=== PATIENT | female | born 1965 | race American Indian/Alaskan Native ===

== ENCOUNTER 2021-04-07 16:50 | Inpatient (IN) | payer MEDICAID ==
--- NOTE | 2021-04-08 18:29 | Consultation ---
History of Present Illness - Reason for Consult Consult date: 04/08/21 Medical management Requesting physician: REYNALDO DALEY - History of Present Illness 56 YO Female with DM, HTN, Bipolar Disorder, Schizophrenia admitted to [facility] for psychiatric stabilization. Consult placed by Dr. Daley for medical management. Patient seen and evaluated in the recreation room. No reported nursing events. Patient denies fever, chills, chest pain, palpitation, productive cough, skin rash, recent contact, or known exposure to COVID-19. Patient denies pain. Past History Past Medical History: diabetes, hypertension, other (See HPI) Past Surgical History: No surgical history, Other (Reviewed) Social history: single. denies: smoking, alcohol abuse Family history: diabetes, hypertension Medications and Allergies Allergies Allergy/AdvReac Type Severity Reaction Status Date / Time Sulfa (Sulfonamide Allergy Intermediate Hives Verified 04/08/21 19:36 Antibiotics) lorazepam [From Ativan] AdvReac Intermediate Unknown Verified 04/08/21 19:30 olanzapine [From Zyprexa] AdvReac Intermediate Unknown Verified 04/08/21 19:34 benztropine [From Cogentin] AdvReac Mild Unknown Verified 04/08/21 19:35 risperidone [From Risperdal] AdvReac Mild Unknown Verified 04/08/21 19:36 Review of Systems Constitutional: no weight loss, no weight gain, no fever, no chills Ears, nose, mouth and throat: no ear pain, no tinnitis, no decreased hearing, no nasal congestion, no nasal discharge Breasts: no change in shape, no swelling Cardiovascular: no chest pain, no rapid/irregular heart beat, no syncope, no lightheadedness Respiratory: no cough with sputum, no excessive sputum, no hemoptysis, no shortness of breath Gastrointestinal: no abdominal pain, no nausea, no constipation, no change in bowel habits Genitourinary Female: no pelvic pain, no flank pain, no dysuria, no urinary frequency, no urgency Rectal: no pain, no incontinence, no bleeding Musculoskeletal: no neck stiffness, no neck pain, no arm numbness/tingling Integumentary: no rash, no pruritis, no sores, no wounds Neurological: no head injury, no weakness, no numbness, no seizures Psychiatric: no anxiety Endocrine: no cold intolerance, no polyphagia, no excessive thirst, no polyuria Hematologic/Lymphatic: no easy bruising, no easy bleeding Allergic/Immunologic: no allergic rhinitis, no wheezing Exam - Constitutional General appearance: Present: no acute distress, well-nourished - EENT Eyes: Present: PERRL ENT: hearing intact, clear oral mucosa - Neck Neck: Present: supple, normal ROM - Respiratory Respiratory effort: normal Respiratory: bilateral: CTA - Cardiovascular Heart Sounds: Present: S1 & S2. Absent: rub, click - Extremities Extremities: pulses symmetrical, No edema Peripheral Pulses: within normal limits - Abdominal General gastrointestinal: Present: soft, non-tender, non-distended, normal bowel sounds Female genitourinary: Present: normal - Integumentary Integumentary: Present: clear, warm, dry - Musculoskeletal Musculoskeletal: gait normal, strength equal bilaterally - Psychiatric Psychiatric: appropriate mood/affect, intact judgment & insight - Neurologic Neurologic: CNII-XII intact, moves all extremities Results - Labs Labs: Abnormal lab results 04/08/21 Range/Units 15:39 POC Glucose 211 H (70-105) mg/dL Assessment and Plan - Patient Problems (1) Hypertension Current Visit: Yes Status: Acute Qualifiers: Hypertension type: primary hypertension Qualified Code(s): I10 - Essential (primary) hypertension Plan to address problem: Monitor blood pressure every shift, continue medical management (2) Diabetes Current Visit: Yes Status: Acute Plan to address problem: Consistent carbohydrate diet, Accu-Chek, insulin protocol, hypoglycemia protocol. (3) Bipolar 1 disorder Current Visit: Yes Status: Acute Plan to address problem: Continue medical management as per primary team.
[2021-04-08] MEDS ORDERED: DEXTROSE 50% IN WATER (25GM) 50 ML SYRINGE IV PRN (20:09)
[2021-04-08] MEDS: INSULIN LISPRO 100 UNIT/ML SUB-Q SCH (21:43)
[2021-04-09] MEDS: INSULIN LISPRO 100 UNIT/ML SUB-Q SCH ×4 (07:59→21:19)
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
[2021-04-09 09:25] LABS: Basophils # (Auto) 0.1 K/mm3 (0.0-0.1); Basophils % (Auto) 1.2 % (0.0-1.8); Eosinophils # (Auto) 0.1 K/mm3 (0.0-0.4); Eosinophils % (Auto) 1.3 % (0.0-4.3); Hemoglobin 12.3 gm/dl (10.1-14.3); Lymphocytes # (Auto) 2.6 K/mm3 (1.2-5.4); Lymphocytes % (Auto) 39.2 % (13.4-35.0); Mean Corpuscular HGB Conc 33 % (30-34); Mean Corpuscular Volume 78 fl (79-97); Monocytes # (Auto) 0.7 K/mm3 (0.0-0.8); Monocytes % (Auto) 11.1 % (0.0-7.3); Platelet Count 369 K/mm3 (140-440)
[2021-04-09 09:49] LABS: Alanine Aminotransferase 10 units/L (7-56); Albumin 3.1 g/dL (3.9-5); BUN/Creatinine Ratio 19; Blood Urea Nitrogen 17 mg/dL (7-17); Calcium 9.8 mg/dL (8.4-10.2); Chol/HDL Ratio 5.88 %; HDL Cholesterol 53 mg/dL (40-59); Hemolysis Index 6; LDL Cholesterol,Direct 213 mg/dL (50-130)
[2021-04-09] MEDS: ZIPRASIDONE MESYLATE 20 MG VIAL IM PRN (14:55)
[2021-04-09] MEDS ORDERED: NON-FORMULARY EACH (Gabapentin [Neurontin] 600 MG Tablet) PO SCH (18:00)
[2021-04-09] MEDS: BENZTROPINE 1 MG TAB PO SCH (18:16)
[2021-04-09] MEDS: metFORMIN 500 MG TAB PO SCH ×2 (18:16→18:18)
[2021-04-09] MEDS: NICOTINE 21 MG/24 HR PATCH TD SCH (18:16)
[2021-04-09] MEDS: GABAPENTIN 300 MG CAP PO SCH (18:17)
[2021-04-09] MEDS: LISINOPRIL 20 MG TAB PO SCH (18:17)
[2021-04-09] MEDS: PRAVASTATIN 40 MG TAB PO SCH (21:16)
[2021-04-09] MEDS: LITHIUM CARBONATE ER 450 MG TAB PO SCH (21:16)
[2021-04-09] MEDS: INSULIN GLARGINE 100 UNITS/ML SUB-Q SCH (21:26)
[2021-04-09] MEDS ORDERED: NON-FORMULARY EACH (Simvastatin [Simvastatin] 40 MG Tablet) PO SCH (22:00)
[2021-04-10] MEDS: INSULIN LISPRO 100 UNIT/ML SUB-Q SCH ×4 (08:43→22:16)
--- NOTE | 2021-04-10 09:09 | Progress Note ---
Subjective Date of service: 04/10/21 Subjective Comment: 04/10/2021:The patient was seen eating breakfast, she is calm, cheerful but delusional. " it feels like someone jumped me last night, I'm a millionaire and people are jealous of me." She denies any current suicidal ideation and denies hallucinations. REVIEW OF SYSTEMS Constitutional: Negative for weight loss ENT: Negative for stridor Respiratory: Negative for cough or hemoptysis All other systems reviewed and are negative MENTAL STATUS EXAMINATION General Appearance and Behavior: Age appropriate, good hygiene, wearing appropriate clothes. calm, poor eye contact Cooperation: Noncooperative Psychomotor Behavior: Psychomotor normal Mood:Ok Affect and affective range: Incongruent with stated mood Thought Process: flight of ideas Thought Content: Not suicidal Speech: normal tone and pace Suicidal Ideation: Denies Homicidal Ideation: Denies Hallucinations: Denies Delusions: None elicited Impulse Control: Questionable Insight and Judgment: Limited insight and poor judgment Memory: Limited Attention: attentive Orientation: a/o to self Assessment (1) Schizophrenia Treatment Plan Patient admitted for inpatient psychiatric evaluation, medication adjustment and close monitoring The patient's behavior, mood, sleep and appetite will be closely monitored. Patient enrolled in individual and group therapeutic sessions and encouraged to attend. Patient provided with a safe and structured environment. Patient's physical health needs will be addressed by the Hospitalist. Hospitalist Consulted Labs including CBC, CMP, Lipid profile and Hemoglobin A1C levels ordered for baseline reference Social Assessment will be completed and the Psychology Assistant will work with patient and family to ensure a suitable and safe disposition Medication adjustment will be made as clinically indicated Continue home medications Usual Wellness [place]/Preservation: - Start Trazodone 50 mg po QHS & 50 mg po QHS PRN between 10 PM & 2 AM for insomnia - Start Melatonin 5 mg po QHS to promote circadian rhythm The patient agreed on the treatment plan, understood the risk, benefit, alternative treatment, potential consequence of no treatment, and gave informed consent. Estimated days: 6 Post hospital care: primary care provider, psychiatric provider Case staffed with Dr. Diaz Legal Status: Voluntary Reaction to Hospitalization: Accepting Medications and Allergies Medications and Allergies Patient Problems: Current Active Problems Schizophrenia Medications and Allergies Allergies Allergy/AdvReac Type Severity Reaction Status Date / Time Sulfa (Sulfonamide Allergy Intermediate Hives Verified 04/08/21 19:36 Antibiotics) lorazepam [From Ativan] AdvReac Intermediate Unknown Verified 04/08/21 19:30 olanzapine [From Zyprexa] AdvReac Intermediate Unknown Verified 04/08/21 19:34 benztropine [From Cogentin] AdvReac Mild Unknown Verified 04/08/21 19:35 risperidone [From Risperdal] AdvReac Mild Unknown Verified 04/08/21 19:36 Home Medications Medication Instructions Recorded Confirmed Last Taken Type Benztropine [Cogentin] 1 mg PO DAILY 04/09/21 04/09/21 Unknown History Gabapentin [Neurontin] 600 mg PO QPM 04/09/21 04/09/21 Unknown History Insulin Glargine [Lantus VIAL] 6 unit SUB-Q QHS 04/09/21 04/09/21 Unknown History Farber Carbonate [Farber 900 mg PO HS 04/09/21 04/09/21 Unknown History Carbonate ER] Simvastatin 40 mg PO HS 04/09/21 04/09/21 Unknown History lisinopriL [Lisinopril] 20 mg PO DAILY 04/09/21 04/09/21 Unknown History metFORMIN [Glucophage] 500 mg PO BID 04/09/21 04/09/21 Unknown History Active Meds: Active Medications Benztropine Mesylate (Benztropine 1 Mg Tab) 1 mg PO DAILY [facility] Last Admin: 04/09/21 18:16 Dose: Not Given Documented by: Dextrose (Dextrose 50% In Water (25gm) 50 Ml Syringe) 0 ml IV Q30MIN PRN; Protocol PRN Reason: Hypoglycemia Gabapentin (Gabapentin 300 Mg Cap) 600 mg PO QPM [facility] Last Admin: 04/09/21 18:17 Dose: Not Given Documented by: Insulin Glargine (Insulin Glargine 100 Units/Ml) 6 units SUB-Q QHS [facility] Last Admin: 04/09/21 21:26 Dose: 6 units Documented by: Insulin Human Lispro (Insulin Lispro 100 Unit/Ml) 0 unit SUB-Q [facility]; Protocol Last Admin: 04/10/21 08:43 Dose: Not Given Documented by: Lisinopril (Lisinopril 20 Mg Tab) 20 mg PO DAILY [facility] Last Admin: 04/09/21 18:17 Dose: Not Given Documented by: Farber Carbonate (Farber Carbonate Er 450 Mg Tab) 900 mg PO [facility] Last Admin: 04/09/21 21:16 Dose: 900 mg Documented by: Metformin HCl (Metformin 500 Mg Tab) 500 mg PO BIDDIAB [facility] Last Admin: 04/09/21 18:18 Dose: Not Given Documented by: Nicotine (Nicotine 21 Mg/24 Hr Patch) 21 mg TD QDAY [facility] Last Admin: 04/09/21 18:16 Dose: Not Given Documented by: Pravastatin Sodium (Pravastatin 40 Mg Tab) 40 mg PO QHS [facility] Last Admin: 04/09/21 21:16 Dose: 40 mg Documented by: Ziprasidone (Ziprasidone Mesylate 20 Mg Vial) 10 mg IM Q4H PRN PRN Reason: Agitation Last Admin: 04/09/21 14:55 Dose: 10 mg Documented by: Results - Results Labs/Vitals: Laboratory Last Values WBC 6.6 K/mm3 (4.5-11.0) 04/09/21 08:51 RBC 4.90 M/mm3 (3.65-5.03) 04/09/21 08:51 Hgb 12.3 gm/dl (10.1-14.3) 04/09/21 08:51 Hct 38.0 % (30.3-42.9) 04/09/21 08:51 MCV 78 fl (79-97) L 04/09/21 08:51 MCH 25 pg (28-32) L 04/09/21 08:51 MCHC 33 % (30-34) 04/09/21 08:51 RDW 19.0 % (13.2-15.2) H 04/09/21 08:51 Plt Count 369 K/mm3 (140-440) 04/09/21 08:51 Lymph % (Auto) 39.2 % (13.4-35.0) H 04/09/21 08:51 [place] % (Auto) 11.1 % (0.0-7.3) H 04/09/21 08:51 Eos % (Auto) 1.3 % (0.0-4.3) 04/09/21 08:51 Baso % (Auto) 1.2 % (0.0-1.8) 04/09/21 08:51 Lymph # (Auto) 2.6 K/mm3 (1.2-5.4) 04/09/21 08:51 [place] # (Auto) 0.7 K/mm3 (0.0-0.8) 04/09/21 08:51 Eos # (Auto) 0.1 K/mm3 (0.0-0.4) 04/09/21 08:51 Baso # (Auto) 0.1 K/mm3 (0.0-0.1) 04/09/21 08:51 Seg Neutrophils % 47.2 % (40.0-70.0) 04/09/21 08:51 Seg Neutrophils # 3.1 K/mm3 (1.8-7.7) 04/09/21 08:51 Sodium 141 mmol/L (137-145) 04/09/21 08:51 Potassium 3.8 mmol/L (3.6-5.0) 04/09/21 08:51 Chloride 104.8 mmol/L (98-107) 04/09/21 08:51 Carbon Dioxide 25 mmol/L (22-30) 04/09/21 08:51 Anion Gap 15 mmol/L 04/09/21 08:51 BUN 17 mg/dL (7-17) 04/09/21 08:51 Creatinine 0.9 mg/dL (0.6-1.2) 04/09/21 08:51 Estimated GFR > 60 ml/min 04/09/21 08:51 BUN/Creatinine Ratio 19 % 04/09/21 08:51 Glucose 186 mg/dL (65-100) H 04/09/21 08:51 POC Glucose 149 mg/dL (70-105) H 04/10/21 06:16 Hemoglobin A1c 9.6 % (4-6) H 04/09/21 08:42 Calcium 9.8 mg/dL (8.4-10.2) 04/09/21 08:51 Total Bilirubin 0.30 mg/dL (0.1-1.2) 04/09/21 08:51 AST 12 units/L (5-40) 04/09/21 08:51 ALT 10 units/L (7-56) 04/09/21 08:51 Alkaline Phosphatase 74 units/L (35-129) 04/09/21 08:51 Total Protein 7.2 g/dL (6.3-8.2) 04/09/21 08:51 Albumin 3.1 g/dL (3.9-5) L 04/09/21 08:51 Albumin/Globulin Ratio 0.8 % 04/09/21 08:51 Triglycerides 251 mg/dL (2-149) H 04/09/21 08:51 Cholesterol 312 mg/dL (50-199) H 04/09/21 08:51 LDL Cholesterol Direct 213 mg/dL (50-130) H 04/09/21 08:51 HDL Cholesterol 53 mg/dL (40-59) 04/09/21 08:51 Cholesterol/HDL Ratio 5.88 % 04/09/21 08:51 TSH 0.073 mlU/mL (0.270-4.200) L 04/09/21 08:51 Last Vital Signs Temp 98.9 F 04/09/21 19:49 Pulse 76 04/09/21 19:49 Resp 20 04/09/21 19:49 BP 198/91 04/09/21 19:49 Pulse Ox 99 04/09/21 19:49
[2021-04-10] MEDS: LISINOPRIL 20 MG TAB PO SCH (10:27)
[2021-04-10] MEDS: BENZTROPINE 1 MG TAB PO SCH (10:27)
[2021-04-10] MEDS: metFORMIN 500 MG TAB PO SCH ×2 (10:27→16:48)
[2021-04-10] MEDS: NICOTINE 21 MG/24 HR PATCH TD SCH (10:32)
--- NOTE | 2021-04-10 11:53 | Progress Note ---
Assessment and Plan - Patient Problems (1) Hypertension Current Visit: Yes Status: Acute Qualifiers: Hypertension type: primary hypertension Qualified Code(s): I10 - Essential (primary) hypertension Plan to address problem: Monitor blood pressure every shift, continue medical management (2) Diabetes Current Visit: Yes Status: Acute Plan to address problem: Consistent carbohydrate diet, Accu-Chek, insulin protocol, hypoglycemia protocol. (3) Bipolar 1 disorder Current Visit: Yes Status: Acute Plan to address problem: Continue medical management as per primary team. History Interval history: 56 YO Female with DM, HTN, Bipolar Disorder, Schizophrenia admitted to [facility] for psychiatric stabilization. Patient seen and evaluated in the recreation room. No reported nursing events. Patient denies pain. Hospitalist Physical - Constitutional Vitals: Temp Pulse Resp BP Pulse Ox 99.4 F 84 18 185/97 99 04/10/21 08:04 04/10/21 10:27 04/10/21 08:04 04/10/21 10:27 04/09/21 19:49 General appearance: Present: no acute distress, well-nourished - EENT Eyes: Present: PERRL ENT: hearing intact - Neck Neck: Present: supple - Respiratory Respiratory: bilateral: CTA - Cardiovascular Rhythm: regular Heart Sounds: Present: S1 & S2 - Extremities Extremities: no ischemia Peripheral Pulses: within normal limits - Abdominal General gastrointestinal: soft, non-tender, non-distended - Integumentary Integumentary: Present: clear, dry - Psychiatric Psychiatric: cooperative - Neurologic Neurologic: CNII-XII intact Results - Labs CBC & Chem 7: 04/09/21 08:51 04/09/21 08:51 Labs: Laboratory Last Values WBC 6.6 K/mm3 (4.5-11.0) 04/09/21 08:51 RBC 4.90 M/mm3 (3.65-5.03) 04/09/21 08:51 Hgb 12.3 gm/dl (10.1-14.3) 04/09/21 08:51 Hct 38.0 % (30.3-42.9) 04/09/21 08:51 MCV 78 fl (79-97) L 04/09/21 08:51 MCH 25 pg (28-32) L 04/09/21 08:51 MCHC 33 % (30-34) 04/09/21 08:51 RDW 19.0 % (13.2-15.2) H 04/09/21 08:51 Plt Count 369 K/mm3 (140-440) 04/09/21 08:51 Lymph % (Auto) 39.2 % (13.4-35.0) H 04/09/21 08:51 [place] % (Auto) 11.1 % (0.0-7.3) H 04/09/21 08:51 Eos % (Auto) 1.3 % (0.0-4.3) 04/09/21 08:51 Baso % (Auto) 1.2 % (0.0-1.8) 04/09/21 08:51 Lymph # (Auto) 2.6 K/mm3 (1.2-5.4) 04/09/21 08:51 [place] # (Auto) 0.7 K/mm3 (0.0-0.8) 04/09/21 08:51 Eos # (Auto) 0.1 K/mm3 (0.0-0.4) 04/09/21 08:51 Baso # (Auto) 0.1 K/mm3 (0.0-0.1) 04/09/21 08:51 Seg Neutrophils % 47.2 % (40.0-70.0) 04/09/21 08:51 Seg Neutrophils # 3.1 K/mm3 (1.8-7.7) 04/09/21 08:51 Sodium 141 mmol/L (137-145) 04/09/21 08:51 Potassium 3.8 mmol/L (3.6-5.0) 04/09/21 08:51 Chloride 104.8 mmol/L (98-107) 04/09/21 08:51 Carbon Dioxide 25 mmol/L (22-30) 04/09/21 08:51 Anion Gap 15 mmol/L 04/09/21 08:51 BUN 17 mg/dL (7-17) 04/09/21 08:51 Creatinine 0.9 mg/dL (0.6-1.2) 04/09/21 08:51 Estimated GFR > 60 ml/min 04/09/21 08:51 BUN/Creatinine Ratio 19 % 04/09/21 08:51 Glucose 186 mg/dL (65-100) H 04/09/21 08:51 POC Glucose 149 mg/dL (70-105) H 04/10/21 06:16 Hemoglobin A1c 9.6 % (4-6) H 04/09/21 08:42 Calcium 9.8 mg/dL (8.4-10.2) 04/09/21 08:51 Total Bilirubin 0.30 mg/dL (0.1-1.2) 04/09/21 08:51 AST 12 units/L (5-40) 04/09/21 08:51 ALT 10 units/L (7-56) 04/09/21 08:51 Alkaline Phosphatase 74 units/L (35-129) 04/09/21 08:51 Total Protein 7.2 g/dL (6.3-8.2) 04/09/21 08:51 Albumin 3.1 g/dL (3.9-5) L 04/09/21 08:51 Albumin/Globulin Ratio 0.8 % 04/09/21 08:51 Triglycerides 251 mg/dL (2-149) H 04/09/21 08:51 Cholesterol 312 mg/dL (50-199) H 04/09/21 08:51 LDL Cholesterol Direct 213 mg/dL (50-130) H 04/09/21 08:51 HDL Cholesterol 53 mg/dL (40-59) 04/09/21 08:51 Cholesterol/HDL Ratio 5.88 % 04/09/21 08:51 TSH 0.073 mlU/mL (0.270-4.200) L 04/09/21 08:51 Tello/IV: Voiding Method Toilet Active Medications - Current Medications Current Medications: Generic Name Dose Route Start Last Admin Trade Name Freq PRN Reason Stop Dose Admin Benztropine Mesylate 1 mg 04/09/21 10:00 04/10/21 10:27 Benztropine 1 Mg Tab PO 1 mg DAILY DEEPA Administration Dextrose 0 ml 04/08/21 20:09 Dextrose 50% In Water (25gm) 50 Ml Syringe IV Q30MIN PRN Hypoglycemia Protocol Gabapentin 600 mg 04/09/21 18:00 04/09/21 18:17 Gabapentin 300 Mg Cap PO Not Given QPM [facility] Insulin Glargine 6 units 04/09/21 22:00 04/09/21 21:26 Insulin Glargine 100 Units/Ml SUB-Q 6 units QHS DEEPA Administration Insulin Human Lispro 0 unit 04/08/21 22:00 04/10/21 08:43 Insulin Lispro 100 Unit/Ml SUB-Q Not Given ACHS [facility] Protocol Lisinopril 20 mg 04/09/21 10:00 04/10/21 10:27 Lisinopril 20 Mg Tab PO 20 mg DAILY DEEPA Administration [place] Carbonate 900 mg 04/09/21 22:00 04/09/21 21:16 [place] Carbonate Er 450 Mg Tab PO 900 mg HS DEEPA Administration Metformin HCl 500 mg 04/09/21 10:00 04/10/21 10:27 Metformin 500 Mg Tab PO 500 mg BIDDIAB DEEPA Administration Nicotine 21 mg 04/09/21 10:00 04/10/21 10:32 Nicotine 21 Mg/24 Hr Patch TD Not Given QDAY [facility] Pravastatin Sodium 40 mg 04/09/21 22:00 04/09/21 21:16 Pravastatin 40 Mg Tab PO 40 mg QHS DEEPA Administration Ziprasidone 10 mg 04/09/21 14:01 04/09/21 14:55 Ziprasidone Mesylate 20 Mg Vial IM 10 mg Q4H PRN Administration Agitation
[2021-04-10] MEDS ORDERED: WATER FOR INJ Sterile (PF) 10 ML ONE (13:49)
[2021-04-10] MEDS: ZIPRASIDONE MESYLATE 20 MG VIAL IM PRN (14:00)
[2021-04-10] MEDS: GABAPENTIN 300 MG CAP PO SCH (18:04)
[2021-04-10 20:30] VITALS: BP 189/124
[2021-04-10] MEDS: PRAVASTATIN 40 MG TAB PO SCH (21:06)
[2021-04-10] MEDS: LITHIUM CARBONATE ER 450 MG TAB PO SCH (21:06)
[2021-04-10] MEDS: INSULIN GLARGINE 100 UNITS/ML SUB-Q SCH (22:17)
[2021-04-10] MEDS ORDERED: ZIPRASIDONE MESYLATE 20 MG VIAL IM ONE ×2 (23:53→23:57)
[2021-04-11] MEDS: metFORMIN 500 MG TAB PO SCH ×2 (07:34→17:21)
[2021-04-11] MEDS: INSULIN LISPRO 100 UNIT/ML SUB-Q SCH ×4 (07:34→22:17)
[2021-04-11] MEDS ORDERED: ZIPRASIDONE MESYLATE 20 MG VIAL IM PRN (07:38)
--- NOTE | 2021-04-11 07:39 | Progress Note ---
Subjective Date of service: 04/11/21 Subjective Comment: 04/10/2021:The patient was seen eating breakfast, she is calm, cheerful but delusional. " it feels like someone jumped me last night, I'm a millionaire and people are jealous of me." She denies any current suicidal ideation and denies hallucinations. 04/11/2021: The patient is agitated and asking about discharge. Per nurse, "t slept for approximated 5 hours . Received one time dose of Geodon 10 mg IM @ 0022 for increased agitation, yelling ,screaming & attempting to enter other pt's room. Refused to follow verbal direction. Awake, & alert this AM." The patient receives Haldol Dec. 100 mg biweekly; waiting for collateral to confirm the last time she received med. REVIEW OF SYSTEMS Constitutional: Negative for weight loss ENT: Negative for stridor Respiratory: Negative for cough or hemoptysis All other systems reviewed and are negative MENTAL STATUS EXAMINATION General Appearance and Behavior: Age appropriate, good hygiene, wearing appropriate clothes. calm, poor eye contact Cooperation: Noncooperative Psychomotor Behavior: Psychomotor normal Mood:agitated Affect and affective range: Incongruent with stated mood Thought Process: flight of ideas Thought Content: Not suicidal Speech: normal tone and pace Suicidal Ideation: Denies Homicidal Ideation: Denies Hallucinations: Denies Delusions: None elicited Impulse Control: Questionable Insight and Judgment: Limited insight and poor judgment Memory: Limited Attention: attentive Orientation: a/o to self Assessment (1) Schizophrenia Treatment Plan Patient admitted for inpatient psychiatric evaluation, medication adjustment and close monitoring The patient's behavior, mood, sleep and appetite will be closely monitored. Patient enrolled in individual and group therapeutic sessions and encouraged to attend. Patient provided with a safe and structured environment. Patient's physical health needs will be addressed by the Hospitalist. Hospitalist Consulted Labs including CBC, CMP, Lipid profile and Hemoglobin A1C levels ordered for baseline reference Social Assessment will be completed and the Printer Slotter Operator will work with patient and family to ensure a suitable and safe disposition Medication adjustment will be made as clinically indicated Continue home medications Start Haldol 5mg po BID Usual Wellness Taoist/Preservation: - Start Trazodone 50 mg po QHS & 50 mg po QHS PRN between 10 PM & 2 AM for insomnia - Start Melatonin 5 mg po QHS to promote circadian rhythm The patient agreed on the treatment plan, understood the risk, benefit, alternative treatment, potential consequence of no treatment, and gave informed consent. Estimated days: 6 Post hospital care: primary care provider, psychiatric provider Case staffed with Dr. Diaz Legal Status: Voluntary Reaction to Hospitalization: Accepting Medications and Allergies Medications and Allergies Patient Problems: Current Active Problems Schizophrenia Medications and Allergies Medications and Allergies Allergies Allergy/AdvReac Type Severity Reaction Status Date / Time Sulfa (Sulfonamide Allergy Intermediate Hives Verified 04/08/21 19:36 Antibiotics) lorazepam [From Ativan] AdvReac Intermediate Unknown Verified 04/08/21 19:30 olanzapine [From Zyprexa] AdvReac Intermediate Unknown Verified 04/08/21 19:34 benztropine [From Cogentin] AdvReac Mild Unknown Verified 04/08/21 19:35 risperidone [From Risperdal] AdvReac Mild Unknown Verified 04/08/21 19:36 Home Medications Medication Instructions Recorded Confirmed Last Taken Type Benztropine [Cogentin] 1 mg PO DAILY 04/09/21 04/09/21 Unknown History Gabapentin [Neurontin] 600 mg PO QPM 04/09/21 04/09/21 Unknown History Insulin Glargine [Lantus VIAL] 6 unit SUB-Q QHS 04/09/21 04/09/21 Unknown History [place] Carbonate [[place] 900 mg PO HS 04/09/21 04/09/21 Unknown History Carbonate ER] Simvastatin 40 mg PO HS 04/09/21 04/09/21 Unknown History lisinopriL [Lisinopril] 20 mg PO DAILY 04/09/21 04/09/21 Unknown History metFORMIN [Glucophage] 500 mg PO BID 04/09/21 04/09/21 Unknown History Active Meds: Active Medications Benztropine Mesylate (Benztropine 1 Mg Tab) 1 mg PO DAILY [facility] Last Admin: 04/10/21 10:27 Dose: 1 mg Documented by: Dextrose (Dextrose 50% In Water (25gm) 50 Ml Syringe) 0 ml IV Q30MIN PRN; Protocol PRN Reason: Hypoglycemia Gabapentin (Gabapentin 300 Mg Cap) 600 mg PO QPM [facility] Last Admin: 04/10/21 18:04 Dose: 600 mg Documented by: Insulin Glargine (Insulin Glargine 100 Units/Ml) 6 units SUB-Q QHS [facility] Last Admin: 04/10/21 22:17 Dose: 6 units Documented by: Insulin Human Lispro (Insulin Lispro 100 Unit/Ml) 0 unit SUB-Q ACHS [facility]; Protocol Last Admin: 04/11/21 07:34 Dose: Not Given Documented by: Lisinopril (Lisinopril 20 Mg Tab) 20 mg PO DAILY [facility] Last Admin: 04/10/21 10:27 Dose: 20 mg Documented by: [place] Carbonate ([place] Carbonate Er 450 Mg Tab) 900 mg PO HS [facility] Last Admin: 04/10/21 21:06 Dose: 900 mg Documented by: Metformin HCl (Metformin 500 Mg Tab) 500 mg PO BIDDIAB [facility] Last Admin: 04/11/21 07:34 Dose: 500 mg Documented by: Nicotine (Nicotine 21 Mg/24 Hr Patch) 21 mg TD QDAY [facility] Last Admin: 04/10/21 10:32 Dose: Not Given Documented by: Pravastatin Sodium (Pravastatin 40 Mg Tab) 40 mg PO QHS [facility] Last Admin: 04/10/21 21:06 Dose: 40 mg Documented by: Ziprasidone (Ziprasidone Mesylate 20 Mg Vial) 20 mg IM Q4H PRN PRN Reason: Agitation Results - Results Labs/Vitals: Laboratory Last Values WBC 6.6 K/mm3 (4.5-11.0) 04/09/21 08:51 RBC 4.90 M/mm3 (3.65-5.03) 04/09/21 08:51 Hgb 12.3 gm/dl (10.1-14.3) 04/09/21 08:51 Hct 38.0 % (30.3-42.9) 04/09/21 08:51 MCV 78 fl (79-97) L 04/09/21 08:51 MCH 25 pg (28-32) L 04/09/21 08:51 MCHC 33 % (30-34) 04/09/21 08:51 RDW 19.0 % (13.2-15.2) H 04/09/21 08:51 Plt Count 369 K/mm3 (140-440) 04/09/21 08:51 Lymph % (Auto) 39.2 % (13.4-35.0) H 04/09/21 08:51 [place] % (Auto) 11.1 % (0.0-7.3) H 04/09/21 08:51 Eos % (Auto) 1.3 % (0.0-4.3) 04/09/21 08:51 Baso % (Auto) 1.2 % (0.0-1.8) 04/09/21 08:51 Lymph # (Auto) 2.6 K/mm3 (1.2-5.4) 04/09/21 08:51 [place] # (Auto) 0.7 K/mm3 (0.0-0.8) 04/09/21 08:51 Eos # (Auto) 0.1 K/mm3 (0.0-0.4) 04/09/21 08:51 Baso # (Auto) 0.1 K/mm3 (0.0-0.1) 04/09/21 08:51 Seg Neutrophils % 47.2 % (40.0-70.0) 04/09/21 08:51 Seg Neutrophils # 3.1 K/mm3 (1.8-7.7) 04/09/21 08:51 Sodium 141 mmol/L (137-145) 04/09/21 08:51 Potassium 3.8 mmol/L (3.6-5.0) 04/09/21 08:51 Chloride 104.8 mmol/L (98-107) 04/09/21 08:51 Carbon Dioxide 25 mmol/L (22-30) 04/09/21 08:51 Anion Gap 15 mmol/L 04/09/21 08:51 BUN 17 mg/dL (7-17) 04/09/21 08:51 Creatinine 0.9 mg/dL (0.6-1.2) 04/09/21 08:51 Estimated GFR > 60 ml/min 04/09/21 08:51 BUN/Creatinine Ratio 19 % 04/09/21 08:51 Glucose 186 mg/dL (65-100) H 04/09/21 08:51 POC Glucose 98 mg/dL (70-105) 04/11/21 06:30 Hemoglobin A1c 9.6 % (4-6) H 04/09/21 08:42 Calcium 9.8 mg/dL (8.4-10.2) 04/09/21 08:51 Total Bilirubin 0.30 mg/dL (0.1-1.2) 04/09/21 08:51 AST 12 units/L (5-40) 04/09/21 08:51 ALT 10 units/L (7-56) 04/09/21 08:51 Alkaline Phosphatase 74 units/L (35-129) 04/09/21 08:51 Total Protein 7.2 g/dL (6.3-8.2) 04/09/21 08:51 Albumin 3.1 g/dL (3.9-5) L 04/09/21 08:51 Albumin/Globulin Ratio 0.8 % 04/09/21 08:51 Triglycerides 251 mg/dL (2-149) H 04/09/21 08:51 Cholesterol 312 mg/dL (50-199) H 04/09/21 08:51 LDL Cholesterol Direct 213 mg/dL (50-130) H 04/09/21 08:51 HDL Cholesterol 53 mg/dL (40-59) 04/09/21 08:51 Cholesterol/HDL Ratio 5.88 % 04/09/21 08:51 TSH 0.073 mlU/mL (0.270-4.200) L 04/09/21 08:51 Last Vital Signs Temp 97.8 F 04/10/21 19:45 Pulse 93 H 04/10/21 19:45 Resp 20 04/10/21 19:45 BP 189/124 04/10/21 19:45 Pulse Ox 98 04/10/21 19:45
[2021-04-11] MEDS: HALOPERIDOL 5 MG TAB PO SCH ×2 (09:32→22:17)
[2021-04-11] MEDS: BENZTROPINE 1 MG TAB PO SCH (09:32)
[2021-04-11] MEDS: NICOTINE 21 MG/24 HR PATCH TD SCH (09:32)
[2021-04-11] MEDS: LISINOPRIL 20 MG TAB PO SCH (09:32)
[2021-04-11] MEDS ORDERED: ARIPiprazole 10 MG TAB PO SCH (10:00)
--- NOTE | 2021-04-11 12:24 | Progress Note ---
Assessment and Plan - Patient Problems (1) Hypertension Current Visit: Yes Status: Acute Qualifiers: Hypertension type: primary hypertension Qualified Code(s): I10 - Essential (primary) hypertension Plan to address problem: Monitor blood pressure every shift, continue medical management (2) Diabetes Current Visit: Yes Status: Acute Plan to address problem: Consistent carbohydrate diet, Accu-Chek, insulin protocol, hypoglycemia protocol. (3) Bipolar 1 disorder Current Visit: Yes Status: Acute Plan to address problem: Continue medical management as per primary team. History Interval history: 56 YO Female with DM, HTN, Bipolar Disorder, Schizophrenia admitted to [facility] unit for psychiatric stabilization. Patient seen and evaluated in the recreation room. No reported nursing events. Patient denies pain. Hospitalist Physical - Constitutional Vitals: Temp Pulse Resp BP Pulse Ox 97.8 F 93 H 20 189/124 98 04/10/21 19:45 04/10/21 19:45 04/10/21 19:45 04/10/21 19:45 04/10/21 19:45 General appearance: Present: no acute distress, well-nourished - EENT Eyes: Present: PERRL, EOM intact - Neck Neck: Present: supple - Respiratory Respiratory effort: normal Respiratory: bilateral: CTA - Cardiovascular Rhythm: regular Heart Sounds: Present: S1 & S2 - Extremities Extremities: no ischemia Peripheral Pulses: within normal limits - Abdominal General gastrointestinal: soft, non-tender, non-distended - Integumentary Integumentary: Present: clear, dry - Psychiatric Psychiatric: cooperative - Neurologic Neurologic: CNII-XII intact Results - Labs CBC & Chem 7: 04/09/21 08:51 04/09/21 08:51 Labs: Laboratory Last Values WBC 6.6 K/mm3 (4.5-11.0) 04/09/21 08:51 RBC 4.90 M/mm3 (3.65-5.03) 04/09/21 08:51 Hgb 12.3 gm/dl (10.1-14.3) 04/09/21 08:51 Hct 38.0 % (30.3-42.9) 04/09/21 08:51 MCV 78 fl (79-97) L 04/09/21 08:51 MCH 25 pg (28-32) L 04/09/21 08:51 MCHC 33 % (30-34) 04/09/21 08:51 RDW 19.0 % (13.2-15.2) H 04/09/21 08:51 Plt Count 369 K/mm3 (140-440) 04/09/21 08:51 Lymph % (Auto) 39.2 % (13.4-35.0) H 04/09/21 08:51 [place] % (Auto) 11.1 % (0.0-7.3) H 04/09/21 08:51 Eos % (Auto) 1.3 % (0.0-4.3) 04/09/21 08:51 Baso % (Auto) 1.2 % (0.0-1.8) 04/09/21 08:51 Lymph # (Auto) 2.6 K/mm3 (1.2-5.4) 04/09/21 08:51 [place] # (Auto) 0.7 K/mm3 (0.0-0.8) 04/09/21 08:51 Eos # (Auto) 0.1 K/mm3 (0.0-0.4) 04/09/21 08:51 Baso # (Auto) 0.1 K/mm3 (0.0-0.1) 04/09/21 08:51 Seg Neutrophils % 47.2 % (40.0-70.0) 04/09/21 08:51 Seg Neutrophils # 3.1 K/mm3 (1.8-7.7) 04/09/21 08:51 Sodium 141 mmol/L (137-145) 04/09/21 08:51 Potassium 3.8 mmol/L (3.6-5.0) 04/09/21 08:51 Chloride 104.8 mmol/L (98-107) 04/09/21 08:51 Carbon Dioxide 25 mmol/L (22-30) 04/09/21 08:51 Anion Gap 15 mmol/L 04/09/21 08:51 BUN 17 mg/dL (7-17) 04/09/21 08:51 Creatinine 0.9 mg/dL (0.6-1.2) 04/09/21 08:51 Estimated GFR > 60 ml/min 04/09/21 08:51 BUN/Creatinine Ratio 19 % 04/09/21 08:51 Glucose 186 mg/dL (65-100) H 04/09/21 08:51 POC Glucose 98 mg/dL (70-105) 04/11/21 06:30 Hemoglobin A1c 9.6 % (4-6) H 04/09/21 08:42 Calcium 9.8 mg/dL (8.4-10.2) 04/09/21 08:51 Total Bilirubin 0.30 mg/dL (0.1-1.2) 04/09/21 08:51 AST 12 units/L (5-40) 04/09/21 08:51 ALT 10 units/L (7-56) 04/09/21 08:51 Alkaline Phosphatase 74 units/L (35-129) 04/09/21 08:51 Total Protein 7.2 g/dL (6.3-8.2) 04/09/21 08:51 Albumin 3.1 g/dL (3.9-5) L 04/09/21 08:51 Albumin/Globulin Ratio 0.8 % 04/09/21 08:51 Triglycerides 251 mg/dL (2-149) H 04/09/21 08:51 Cholesterol 312 mg/dL (50-199) H 04/09/21 08:51 LDL Cholesterol Direct 213 mg/dL (50-130) H 04/09/21 08:51 HDL Cholesterol 53 mg/dL (40-59) 04/09/21 08:51 Cholesterol/HDL Ratio 5.88 % 04/09/21 08:51 TSH 0.073 mlU/mL (0.270-4.200) L 04/09/21 08:51 Tello/IV: Voiding Method Incontinent Active Medications - Current Medications Current Medications: Generic Name Dose Route Start Last Admin Trade Name Freq PRN Reason Stop Dose Admin Benztropine Mesylate 1 mg 04/09/21 10:00 04/11/21 09:32 Benztropine 1 Mg Tab PO 1 mg DAILY DEEPA Administration Dextrose 0 ml 04/08/21 20:09 Dextrose 50% In Water (25gm) 50 Ml Syringe IV Q30MIN PRN Hypoglycemia Protocol Gabapentin 600 mg 04/09/21 18:00 04/10/21 18:04 Gabapentin 300 Mg Cap PO 600 mg QPM DEEPA Administration Haloperidol 5 mg 04/11/21 10:00 04/11/21 09:32 Haloperidol 5 Mg Tab PO 5 mg BID DEEPA Administration Insulin Glargine 6 units 04/09/21 22:00 04/10/21 22:17 Insulin Glargine 100 Units/Ml SUB-Q 6 units QHS DEEPA Administration Insulin Human Lispro 0 unit 04/08/21 22:00 04/11/21 07:34 Insulin Lispro 100 Unit/Ml SUB-Q Not Given ACHS [facility] Protocol Lisinopril 20 mg 04/09/21 10:00 04/11/21 09:32 Lisinopril 20 Mg Tab PO 20 mg DAILY DEEPA Administration [place] Carbonate 900 mg 04/09/21 22:00 04/10/21 21:06 [place] Carbonate Er 450 Mg Tab PO 900 mg HS DEEPA Administration Metformin HCl 500 mg 04/09/21 10:00 04/11/21 07:34 Metformin 500 Mg Tab PO 500 mg BIDDIAB DEEPA Administration Nicotine 21 mg 04/09/21 10:00 04/11/21 09:32 Nicotine 21 Mg/24 Hr Patch TD Not Given QDAY DEEPA Pravastatin Sodium 40 mg 04/09/21 22:00 04/10/21 21:06 Pravastatin 40 Mg Tab PO 40 mg QHS DEEPA Administration Ziprasidone 20 mg 04/11/21 07:38 Ziprasidone Mesylate 20 Mg Vial IM Q4H PRN Agitation
[2021-04-11] MEDS: GABAPENTIN 300 MG CAP PO SCH (17:21)
--- NOTE | 2021-04-11 19:42 | Progress Note ---
Assessment and Plan - Patient Problems (1) Hypertension Current Visit: Yes Status: Acute Qualifiers: Hypertension type: primary hypertension Qualified Code(s): I10 - Essential (primary) hypertension Plan to address problem: Monitor blood pressure every shift, continue medical management (2) Diabetes Current Visit: Yes Status: Acute Plan to address problem: Consistent carbohydrate diet, Accu-Chek, insulin protocol, hypoglycemia protocol. (3) Bipolar 1 disorder Current Visit: Yes Status: Acute Plan to address problem: Continue medical management as per primary team. History Interval history: 56 YO Female with DM, HTN, Bipolar Disorder, Schizophrenia admitted to [facility] unit for psychiatric stabilization. Patient seen and evaluated in the recreation room. No reported nursing events. Patient denies pain. Hospitalist Physical - Constitutional Vitals: Temp Pulse Resp BP Pulse Ox 97.8 F 93 H 20 189/124 98 04/10/21 19:45 04/10/21 19:45 04/10/21 19:45 04/10/21 19:45 04/10/21 19:45 General appearance: Present: no acute distress, well-nourished - EENT Eyes: Present: PERRL ENT: hearing intact - Neck Neck: Present: supple - Respiratory Respiratory effort: normal Respiratory: bilateral: CTA - Cardiovascular Rhythm: regular Heart Sounds: Present: S1 & S2 - Extremities Extremities: no ischemia Peripheral Pulses: within normal limits - Abdominal General gastrointestinal: soft, non-tender, non-distended - Integumentary Integumentary: Present: clear, dry - Psychiatric Psychiatric: cooperative - Neurologic Neurologic: CNII-XII intact Results - Labs CBC & Chem 7: 04/09/21 08:51 04/09/21 08:51 Labs: Laboratory Last Values WBC 6.6 K/mm3 (4.5-11.0) 04/09/21 08:51 RBC 4.90 M/mm3 (3.65-5.03) 04/09/21 08:51 Hgb 12.3 gm/dl (10.1-14.3) 04/09/21 08:51 Hct 38.0 % (30.3-42.9) 04/09/21 08:51 MCV 78 fl (79-97) L 04/09/21 08:51 MCH 25 pg (28-32) L 04/09/21 08:51 MCHC 33 % (30-34) 04/09/21 08:51 RDW 19.0 % (13.2-15.2) H 04/09/21 08:51 Plt Count 369 K/mm3 (140-440) 04/09/21 08:51 Lymph % (Auto) 39.2 % (13.4-35.0) H 04/09/21 08:51 [place] % (Auto) 11.1 % (0.0-7.3) H 04/09/21 08:51 Eos % (Auto) 1.3 % (0.0-4.3) 04/09/21 08:51 Baso % (Auto) 1.2 % (0.0-1.8) 04/09/21 08:51 Lymph # (Auto) 2.6 K/mm3 (1.2-5.4) 04/09/21 08:51 [place] # (Auto) 0.7 K/mm3 (0.0-0.8) 04/09/21 08:51 Eos # (Auto) 0.1 K/mm3 (0.0-0.4) 04/09/21 08:51 Baso # (Auto) 0.1 K/mm3 (0.0-0.1) 04/09/21 08:51 Seg Neutrophils % 47.2 % (40.0-70.0) 04/09/21 08:51 Seg Neutrophils # 3.1 K/mm3 (1.8-7.7) 04/09/21 08:51 Sodium 141 mmol/L (137-145) 04/09/21 08:51 Potassium 3.8 mmol/L (3.6-5.0) 04/09/21 08:51 Chloride 104.8 mmol/L (98-107) 04/09/21 08:51 Carbon Dioxide 25 mmol/L (22-30) 04/09/21 08:51 Anion Gap 15 mmol/L 04/09/21 08:51 BUN 17 mg/dL (7-17) 04/09/21 08:51 Creatinine 0.9 mg/dL (0.6-1.2) 04/09/21 08:51 Estimated GFR > 60 ml/min 04/09/21 08:51 BUN/Creatinine Ratio 19 % 04/09/21 08:51 Glucose 186 mg/dL (65-100) H 04/09/21 08:51 POC Glucose 98 mg/dL (70-105) 04/11/21 06:30 Hemoglobin A1c 9.6 % (4-6) H 04/09/21 08:42 Calcium 9.8 mg/dL (8.4-10.2) 04/09/21 08:51 Total Bilirubin 0.30 mg/dL (0.1-1.2) 04/09/21 08:51 AST 12 units/L (5-40) 04/09/21 08:51 ALT 10 units/L (7-56) 04/09/21 08:51 Alkaline Phosphatase 74 units/L (35-129) 04/09/21 08:51 Total Protein 7.2 g/dL (6.3-8.2) 04/09/21 08:51 Albumin 3.1 g/dL (3.9-5) L 04/09/21 08:51 Albumin/Globulin Ratio 0.8 % 04/09/21 08:51 Triglycerides 251 mg/dL (2-149) H 04/09/21 08:51 Cholesterol 312 mg/dL (50-199) H 04/09/21 08:51 LDL Cholesterol Direct 213 mg/dL (50-130) H 04/09/21 08:51 HDL Cholesterol 53 mg/dL (40-59) 04/09/21 08:51 Cholesterol/HDL Ratio 5.88 % 04/09/21 08:51 TSH 0.073 mlU/mL (0.270-4.200) L 04/09/21 08:51 Tello/IV: Voiding Method Toilet Active Medications - Current Medications Current Medications: Generic Name Dose Route Start Last Admin Trade Name Freq PRN Reason Stop Dose Admin Benztropine Mesylate 1 mg 04/09/21 10:00 04/11/21 09:32 Benztropine 1 Mg Tab PO 1 mg DAILY DEEPA Administration Dextrose 0 ml 04/08/21 20:09 Dextrose 50% In Water (25gm) 50 Ml Syringe IV Q30MIN PRN Hypoglycemia Protocol Gabapentin 600 mg 04/09/21 18:00 04/11/21 17:21 Gabapentin 300 Mg Cap PO 600 mg QPM DEEPA Administration Haloperidol 5 mg 04/11/21 10:00 04/11/21 09:32 Haloperidol 5 Mg Tab PO 5 mg BID DEEPA Administration Insulin Glargine 6 units 04/09/21 22:00 04/10/21 22:17 Insulin Glargine 100 Units/Ml SUB-Q 6 units QHS DEEPA Administration Insulin Human Lispro 0 unit 04/08/21 22:00 04/11/21 17:21 Insulin Lispro 100 Unit/Ml SUB-Q Not Given ACHS COUNT [facility]CLUDES [facility] Protocol Lisinopril 20 mg 04/09/21 10:00 04/11/21 09:32 Lisinopril 20 Mg Tab PO 20 mg DAILY DEEPA Administration [place] Carbonate 900 mg 04/09/21 22:00 04/10/21 21:06 [place] Carbonate Er 450 Mg Tab PO 900 mg HS DEEPA Administration Metformin HCl 500 mg 04/09/21 10:00 04/11/21 17:21 Metformin 500 Mg Tab PO 500 mg BIDDIAB DEEPA Administration Nicotine 21 mg 04/09/21 10:00 04/11/21 09:32 Nicotine 21 Mg/24 Hr Patch TD Not Given QDAY COUNT INCLUDES [facility] Pravastatin Sodium 40 mg 04/09/21 22:00 04/10/21 21:06 Pravastatin 40 Mg Tab PO 40 mg QHS DEEPA Administration Ziprasidone 20 mg 04/11/21 07:38 04/11/21 14:44 Ziprasidone Mesylate 20 Mg Vial IM 20 mg Q4H PRN Administration Agitation
[2021-04-11] MEDS: PRAVASTATIN 40 MG TAB PO SCH (22:17)
[2021-04-11] MEDS: LITHIUM CARBONATE ER 450 MG TAB PO SCH (22:17)
[2021-04-11] MEDS: INSULIN GLARGINE 100 UNITS/ML SUB-Q SCH (22:19)
[2021-04-12] MEDS: HALOPERIDOL 5 MG TAB PO SCH ×2 (00:14→22:57)
[2021-04-12] MEDS: PRAVASTATIN 40 MG TAB PO SCH ×2 (00:15→22:58)
[2021-04-12] MEDS: LITHIUM CARBONATE ER 450 MG TAB PO SCH ×2 (00:15→22:58)
[2021-04-12] MEDS ORDERED: LORazepam 2 MG/ML VIAL IV PRN (07:59)
--- NOTE | 2021-04-12 08:05 | Progress Note ---
Subjective Date of service: 04/12/21 Subjective Comment: 04/10/2021:The patient was seen eating breakfast, she is calm, cheerful but delusional. " it feels like someone jumped me last night, I'm a millionaire and people are jealous of me." She denies any current suicidal ideation and denies hallucinations. 04/11/2021: The patient is agitated and asking about discharge. Per nurse, "t slept for approximated 5 hours . Received one time dose of Geodon 10 mg IM @ 0022 for increased agitation, yelling ,screaming & attempting to enter other pt's room. Refused to follow verbal direction. Awake, & alert this AM." The patient receives Haldol Dec. 100 mg biweekly; waiting for collateral to confirm the last time she received med. 04/12/2021: Patient is agitated asking to home. Per nurse" Last evening the patient's behavior was labile. She went from crying and yelling to stating "I'm calm." She has a good appetite but refused her medications this evening. She stated "I'm not crazy and I'm not taking your meds." After reminding patient that her behavior was an indicator of how well she is doing she was able to calm down. She again calmly refused medications, vital signs and accucheck. After refusing everything she went to bed and went to sleep. Overnight the patient rested quietly. She slept continually for 8 hours." REVIEW OF SYSTEMS Constitutional: Negative for weight loss ENT: Negative for stridor Respiratory: Negative for cough or hemoptysis All other systems reviewed and are negative MENTAL STATUS EXAMINATION General Appearance and Behavior: Age appropriate, good hygiene, wearing appropriate clothes. calm, poor eye contact Cooperation: Noncooperative Psychomotor Behavior: Psychomotor normal Mood:agitated, angry Affect and affective range: Incongruent with stated mood Thought Process: flight of ideas Thought Content: Not suicidal Speech: normal tone and pace Suicidal Ideation: Denies Homicidal Ideation: Denies Hallucinations: Denies Delusions: None elicited Impulse Control: Questionable Insight and Judgment: Limited insight and poor judgment Memory: Limited Attention: attentive Orientation: a/o to self Assessment (1) Schizophrenia Treatment Plan Patient admitted for inpatient psychiatric evaluation, medication adjustment and close monitoring The patient's behavior, mood, sleep and appetite will be closely monitored. Patient enrolled in individual and group therapeutic sessions and encouraged to attend. Patient provided with a safe and structured environment. Patient's physical health needs will be addressed by the Hospitalist. Hospitalist Consulted Labs including CBC, CMP, Lipid profile and Hemoglobin A1C levels ordered for baseline reference Social Assessment will be completed and the Motion Picture Printer will work with patient and family to ensure a suitable and safe disposition Medication adjustment will be made as clinically indicated Continue home medications Start Haldol DEC 50mg IM Continue Haldol 5mg po BID Usual Wellness Cheondoism/Preservation: - Start Trazodone 50 mg po QHS & 50 mg po QHS PRN between 10 PM & 2 AM for insomnia - Start Melatonin 5 mg po QHS to promote circadian rhythm The patient agreed on the treatment plan, understood the risk, benefit, alternative treatment, potential consequence of no treatment, and gave informed consent. Estimated days: 6 Post hospital care: primary care provider, psychiatric provider Case staffed with Dr. Diaz Legal Status: Voluntary Reaction to Hospitalization: Accepting Medications and Allergies Medications and Allergies Patient Problems: Current Active Problems Medications and Allergies Allergies Allergy/AdvReac Type Severity Reaction Status Date / Time Sulfa (Sulfonamide Allergy Intermediate Hives Verified 04/08/21 19:36 Antibiotics) lorazepam [From Ativan] AdvReac Intermediate Unknown Verified 04/08/21 19:30 olanzapine [From Zyprexa] AdvReac Intermediate Unknown Verified 04/08/21 19:34 benztropine [From Cogentin] AdvReac Mild Unknown Verified 04/08/21 19:35 risperidone [From Risperdal] AdvReac Mild Unknown Verified 04/08/21 19:36 Home Medications Medication Instructions Recorded Confirmed Last Taken Type Benztropine [Cogentin] 1 mg PO DAILY 04/09/21 04/09/21 Unknown History Gabapentin [Neurontin] 600 mg PO QPM 04/09/21 04/09/21 Unknown History Insulin Glargine [Lantus VIAL] 6 unit SUB-Q QHS 04/09/21 04/09/21 Unknown History [place] Carbonate [[place] 900 mg PO HS 04/09/21 04/09/21 Unknown History Carbonate ER] Simvastatin 40 mg PO HS 04/09/21 04/09/21 Unknown History lisinopriL [Lisinopril] 20 mg PO DAILY 04/09/21 04/09/21 Unknown History metFORMIN [Glucophage] 500 mg PO BID 04/09/21 04/09/21 Unknown History Active Meds: Active Medications Benztropine Mesylate (Benztropine 1 Mg Tab) 1 mg PO DAILY [facility] Last Admin: 04/11/21 09:32 Dose: 1 mg Documented by: Dextrose (Dextrose 50% In Water (25gm) 50 Ml Syringe) 0 ml IV Q30MIN PRN; Protocol PRN Reason: Hypoglycemia Gabapentin (Gabapentin 300 Mg Cap) 600 mg PO QPM [facility] Last Admin: 04/11/21 17:21 Dose: 600 mg Documented by: Haloperidol [place]anoate (Haloperidol Decanoate 100 Mg/1 Ml Inj) 50 mg IM ONCE ONE Stop: 04/12/21 08:02 Haloperidol Lactate (Haloperidol Lactate 5 Mg/1 Ml Inj) 5 mg IM BID [facility] Insulin Glargine (Insulin Glargine 100 Units/Ml) 6 units SUB-Q QHS [facility] Last Admin: 04/11/21 22:19 Dose: Not Given Documented by: Insulin Human Lispro (Insulin Lispro 100 Unit/Ml) 0 unit SUB-Q ACHS [facility]; Protocol Last Admin: 04/11/21 22:17 Dose: Not Given Documented by: Lisinopril (Lisinopril 20 Mg Tab) 20 mg PO DAILY [facility] Last Admin: 04/11/21 09:32 Dose: 20 mg Documented by: [place] Carbonate ([place] Carbonate Er 450 Mg Tab) 900 mg PO HS [facility] Last Admin: 04/12/21 00:15 Dose: Not Given Documented by: Lorazepam (Lorazepam 2 Mg/Ml Vial) 1 mg IV Q4H PRN PRN Reason: Agitation Metformin HCl (Metformin 500 Mg Tab) 500 mg PO BIDDIAB [facility] Last Admin: 04/11/21 17:21 Dose: 500 mg Documented by: Nicotine (Nicotine 21 Mg/24 Hr Patch) 21 mg TD QDAY [facility] Last Admin: 04/11/21 09:32 Dose: Not Given Documented by: Pravastatin Sodium (Pravastatin 40 Mg Tab) 40 mg PO QHS [facility] Last Admin: 04/12/21 00:15 Dose: Not Given Documented by: Ziprasidone (Ziprasidone Mesylate 20 Mg Vial) 20 mg IM Q4H PRN PRN Reason: Agitation Last Admin: 04/11/21 14:44 Dose: 20 mg Documented by: Results - Results Labs/Vitals: Laboratory Last Values WBC 6.6 K/mm3 (4.5-11.0) 04/09/21 08:51 RBC 4.90 M/mm3 (3.65-5.03) 04/09/21 08:51 Hgb 12.3 gm/dl (10.1-14.3) 04/09/21 08:51 Hct 38.0 % (30.3-42.9) 04/09/21 08:51 MCV 78 fl (79-97) L 04/09/21 08:51 MCH 25 pg (28-32) L 04/09/21 08:51 MCHC 33 % (30-34) 04/09/21 08:51 RDW 19.0 % (13.2-15.2) H 04/09/21 08:51 Plt Count 369 K/mm3 (140-440) 04/09/21 08:51 Lymph % (Auto) 39.2 % (13.4-35.0) H 04/09/21 08:51 [place] % (Auto) 11.1 % (0.0-7.3) H 04/09/21 08:51 Eos % (Auto) 1.3 % (0.0-4.3) 04/09/21 08:51 Baso % (Auto) 1.2 % (0.0-1.8) 04/09/21 08:51 Lymph # (Auto) 2.6 K/mm3 (1.2-5.4) 04/09/21 08:51 [place] # (Auto) 0.7 K/mm3 (0.0-0.8) 04/09/21 08:51 Eos # (Auto) 0.1 K/mm3 (0.0-0.4) 04/09/21 08:51 Baso # (Auto) 0.1 K/mm3 (0.0-0.1) 04/09/21 08:51 Seg Neutrophils % 47.2 % (40.0-70.0) 04/09/21 08:51 Seg Neutrophils # 3.1 K/mm3 (1.8-7.7) 04/09/21 08:51 Sodium 141 mmol/L (137-145) 04/09/21 08:51 Potassium 3.8 mmol/L (3.6-5.0) 04/09/21 08:51 Chloride 104.8 mmol/L (98-107) 04/09/21 08:51 Carbon Dioxide 25 mmol/L (22-30) 04/09/21 08:51 Anion Gap 15 mmol/L 04/09/21 08:51 BUN 17 mg/dL (7-17) 04/09/21 08:51 Creatinine 0.9 mg/dL (0.6-1.2) 04/09/21 08:51 Estimated GFR > 60 ml/min 04/09/21 08:51 BUN/Creatinine Ratio 19 % 04/09/21 08:51 Glucose 186 mg/dL (65-100) H 04/09/21 08:51 POC Glucose 98 mg/dL (70-105) 04/11/21 06:30 Hemoglobin A1c 9.6 % (4-6) H 04/09/21 08:42 Calcium 9.8 mg/dL (8.4-10.2) 04/09/21 08:51 Total Bilirubin 0.30 mg/dL (0.1-1.2) 04/09/21 08:51 AST 12 units/L (5-40) 04/09/21 08:51 ALT 10 units/L (7-56) 04/09/21 08:51 Alkaline Phosphatase 74 units/L (35-129) 04/09/21 08:51 Total Protein 7.2 g/dL (6.3-8.2) 04/09/21 08:51 Albumin 3.1 g/dL (3.9-5) L 04/09/21 08:51 Albumin/Globulin Ratio 0.8 % 04/09/21 08:51 Triglycerides 251 mg/dL (2-149) H 04/09/21 08:51 Cholesterol 312 mg/dL (50-199) H 04/09/21 08:51 LDL Cholesterol Direct 213 mg/dL (50-130) H 04/09/21 08:51 HDL Cholesterol 53 mg/dL (40-59) 04/09/21 08:51 Cholesterol/HDL Ratio 5.88 % 04/09/21 08:51 TSH 0.073 mlU/mL (0.270-4.200) L 04/09/21 08:51 Last Vital Signs Temp 97.8 F 04/10/21 19:45 Pulse 93 H 04/10/21 19:45 Resp 20 04/10/21 19:45 BP 189/124 04/10/21 19:45 Pulse Ox 98 04/10/21 19:45
[2021-04-12] MEDS ORDERED: HALOPERIDOL DECANOATE 100 MG/1 ML INJ IM NR (09:00)
[2021-04-12] MEDS: INSULIN LISPRO 100 UNIT/ML SUB-Q SCH ×4 (09:06→22:57)
[2021-04-12] MEDS ORDERED: HALOPERIDOL LACTATE 5 MG/1 ML INJ IM SCH (10:00)
[2021-04-12] MEDS: metFORMIN 500 MG TAB PO SCH ×2 (10:35→16:59)
[2021-04-12] MEDS: NICOTINE 21 MG/24 HR PATCH TD SCH (10:35)
[2021-04-12] MEDS: BENZTROPINE 1 MG TAB PO SCH (10:35)
[2021-04-12] MEDS: LISINOPRIL 20 MG TAB PO SCH (10:36)
[2021-04-12] MEDS: GABAPENTIN 300 MG CAP PO SCH (17:00)
[2021-04-12] MEDS: INSULIN GLARGINE 100 UNITS/ML SUB-Q SCH (22:57)
--- NOTE | 2021-04-13 07:59 | Discharge Summary ---
Providers - Providers Date of Admission: 04/08/21 15:03 Date of discharge: 04/13/21 Attending physician: REYNALDO DALEY MD 04/07/21 18:04 Consult to Physician [CONS] Routine Comment: Consulting Provider: CARA HANSON Physician Instructions: Reason For Exam: manage medical conditions Primary care physician: PRACTICE REPRESENTATIVE Hospitalization Reason for admission: psychosis Admitting Diagnosis: F20.9 - SCHIZOPHRENIA, UNSPECIFIED Condition: Stable Hospital course: The patient was provided inpatient psychiatric treatment with safe and supportive environment, group/individual therapy, psychiatric medication, medication adjustment, adverse effect monitor, medical evaluation, medical treatment, social service assessment, social support meeting, placement assessment and psycho-education. The patients mood, cognition, behavior, motivation, compliance to treatment and appreciation on family/social support are improved and stabilized. At the time of discharge, the patient had no suicidal ideas, no homicidal ideas, no aggressive thoughts, no endangering behavior and no debilitating adverse effects. The patient agreed on the treatment plan, understood the risk, benefit, alternative treatment, potential consequence of no treatment, and gave informed consent. Progress Note: 04/10/2021:The patient was seen eating breakfast, she is calm, cheerful but delusional. " it feels like someone jumped me last night, I'm a millionaire and people are jealous of me." She denies any current suicidal ideation and denies hallucinations. 04/11/2021: The patient is agitated and asking about discharge. Per nurse, "t slept for approximated 5 hours . Received one time dose of Geodon 10 mg IM @ 0022 for increased agitation, yelling ,screaming & attempting to enter other pt's room. Refused to follow verbal direction. Awake, & alert this AM." The patient receives Haldol Dec. 100 mg biweekly; waiting for collateral to confirm the last time she received med. 04/12/2021: Patient is agitated asking to home. Per nurse" Last evening the patient's behavior was labile. She went from crying and yelling to stating "I'm calm." She has a good appetite but refused her medications this evening. She stated "I'm not crazy and I'm not taking your meds." After reminding patient that her behavior was an indicator of how well she is doing she was able to calm down. She again calmly refused medications, vital signs and accucheck. After refusing everything she went to bed and went to sleep. Overnight the patient rested quietly. She slept continually for 8 hours." Disposition: 01 HOME / SELF CARE / HOMELESS Allergies/Adverse Reactions: Allergies Sulfa (Sulfonamide Antibiotics) Allergy (Intermediate, Verified 04/08/21 19:36) Hives lorazepam [From Ativan] Adverse Reaction (Intermediate, Verified 04/08/21 19:30) Unknown olanzapine [From Zyprexa] Adverse Reaction (Intermediate, Verified 04/08/21 19:34) Unknown benztropine [From Cogentin] Adverse Reaction (Mild, Verified 04/08/21 19:35) Unknown risperidone [From Risperdal] Adverse Reaction (Mild, Verified 04/08/21 19:36) Unknown Vital Signs: Last Vital Signs Temp 97.8 F 04/10/21 19:45 Pulse 93 H 04/10/21 19:45 Resp 20 04/10/21 19:45 BP 189/124 04/10/21 19:45 Pulse Ox 98 04/10/21 19:45 Last Lab: Laboratory Last Values WBC 6.6 K/mm3 (4.5-11.0) 04/09/21 08:51 RBC 4.90 M/mm3 (3.65-5.03) 04/09/21 08:51 Hgb 12.3 gm/dl (10.1-14.3) 04/09/21 08:51 Hct 38.0 % (30.3-42.9) 04/09/21 08:51 MCV 78 fl (79-97) L 04/09/21 08:51 MCH 25 pg (28-32) L 04/09/21 08:51 MCHC 33 % (30-34) 04/09/21 08:51 RDW 19.0 % (13.2-15.2) H 04/09/21 08:51 Plt Count 369 K/mm3 (140-440) 04/09/21 08:51 Lymph % (Auto) 39.2 % (13.4-35.0) H 04/09/21 08:51 [place] % (Auto) 11.1 % (0.0-7.3) H 04/09/21 08:51 Eos % (Auto) 1.3 % (0.0-4.3) 04/09/21 08:51 Baso % (Auto) 1.2 % (0.0-1.8) 04/09/21 08:51 Lymph # (Auto) 2.6 K/mm3 (1.2-5.4) 04/09/21 08:51 [place] # (Auto) 0.7 K/mm3 (0.0-0.8) 04/09/21 08:51 Eos # (Auto) 0.1 K/mm3 (0.0-0.4) 04/09/21 08:51 Baso # (Auto) 0.1 K/mm3 (0.0-0.1) 04/09/21 08:51 Seg Neutrophils % 47.2 % (40.0-70.0) 04/09/21 08:51 Seg Neutrophils # 3.1 K/mm3 (1.8-7.7) 04/09/21 08:51 Sodium 141 mmol/L (137-145) 04/09/21 08:51 Potassium 3.8 mmol/L (3.6-5.0) 04/09/21 08:51 Chloride 104.8 mmol/L (98-107) 04/09/21 08:51 Carbon Dioxide 25 mmol/L (22-30) 04/09/21 08:51 Anion Gap 15 mmol/L 04/09/21 08:51 BUN 17 mg/dL (7-17) 04/09/21 08:51 Creatinine 0.9 mg/dL (0.6-1.2) 04/09/21 08:51 Estimated GFR > 60 ml/min 04/09/21 08:51 BUN/Creatinine Ratio 19 % 04/09/21 08:51 Glucose 186 mg/dL (65-100) H 04/09/21 08:51 POC Glucose 98 mg/dL (70-105) 04/11/21 06:30 Hemoglobin A1c 9.6 % (4-6) H 04/09/21 08:42 Calcium 9.8 mg/dL (8.4-10.2) 04/09/21 08:51 Total Bilirubin 0.30 mg/dL (0.1-1.2) 04/09/21 08:51 AST 12 units/L (5-40) 04/09/21 08:51 ALT 10 units/L (7-56) 04/09/21 08:51 Alkaline Phosphatase 74 units/L (35-129) 04/09/21 08:51 Total Protein 7.2 g/dL (6.3-8.2) 04/09/21 08:51 Albumin 3.1 g/dL (3.9-5) L 04/09/21 08:51 Albumin/Globulin Ratio 0.8 % 04/09/21 08:51 Triglycerides 251 mg/dL (2-149) H 04/09/21 08:51 Cholesterol 312 mg/dL (50-199) H 04/09/21 08:51 LDL Cholesterol Direct 213 mg/dL (50-130) H 04/09/21 08:51 HDL Cholesterol 53 mg/dL (40-59) 04/09/21 08:51 Cholesterol/HDL Ratio 5.88 % 04/09/21 08:51 TSH 0.073 mlU/mL (0.270-4.200) L 04/09/21 08:51 Core Measure Documentation - Palliative Care Palliative Care/ Comfort Measures: Not Applicable - Core Measures Any of the following diagnoses?: none Exam - Constitutional Vitals: Temp Pulse Resp BP Pulse Ox 97.8 F 93 H 20 189/124 98 04/10/21 19:45 04/10/21 19:45 04/10/21 19:45 04/10/21 19:45 04/10/21 19:45 Plan Activity: advance as tolerated Weight Bearing Status: Weight Bear as Tolerated Diet: regular Care Plan Goals: Maintain good and stable mental health. Plan of Treatment: The patient should be compliant with medications, not to use drugs and not to drink alcohol. The patient understands that if suicidal ideas, homicidal ideas, or any endangering thoughts/behavior arise, they should immediately seek for emergent assistance including but not limited to crisis hot line and emergency room. Follow up with outpatient Psychiatrist and PCP within 7 - 14 days of discharge. Follow up with: PRIMARY CARE, [Primary Care Provider] - 7 Days Prescriptions: Gabapentin 600 mg PO QPM 30 Days #30 capsule haloperidoL [Haldol] 5 mg PO BID 30 Days #60 tablet [place] Carbonate [[place] Carbonate ER] 900 mg PO HS 30 Days #30
[2021-04-13] MEDS: INSULIN LISPRO 100 UNIT/ML SUB-Q SCH (08:00)
[2021-04-13] MEDS: metFORMIN 500 MG TAB PO SCH (09:16)
[2021-04-13] MEDS: LISINOPRIL 20 MG TAB PO SCH (09:17)
[2021-04-13] MEDS: BENZTROPINE 1 MG TAB PO SCH (09:17)
[2021-04-13] MEDS: HALOPERIDOL 5 MG TAB PO SCH (09:17)
== END 2021-04-13 14:40 | disposition home or self-care (01) | DRG 885 ==
LOC: 3A 16:50 → UNDOADMIN 16:50 → 5A 04-08 15:03
PROVIDERS: ADMIT Psychiatry & Neurology Psychiatry; ATTEND Psychiatry & Neurology Psychiatry
DX: F20.9 Schizophrenia, unspecified (principal); E11.9 Type 2 diabetes mellitus without complications; I10 Essential (primary) hypertension; Z83.3 Family history of diabetes mellitus; Z82.49 Family history of ischemic heart disease and other diseases of the circulatory system; Z20.822 Contact with and (suspected) exposure to COVID-19
CPT/HCPCS: 36415; 80053; 80061; 82962; 83036; 84443; 85025; G0378; J1631; J1815; J3486